=== PATIENT | female | born 1950 | race Caucasian/White ===

== ENCOUNTER 2022-06-18 11:02 | Emergency (ER) | payer MEDICARE, BC, SELFPAY ==
[2022-06-18 11:22] VITALS: BP 143/88; PULSE 81; RESP 16; TEMP 36.6; O2SAT 99; BMI 33.1
--- NOTE | 2022-06-18 11:50 | CRLHL7_ITS ---
For Patients: As a result of the Century Cures Act, medical imaging exams and procedure reports are released immediately into your electronic medical record. You may view this report before your referring provider. If you have questions, please contact your health care provider. indication: Pain, no fall Technique: Volumetric multidetector CT images of the lumbar spine were obtained without the administration of IV contrast. Comparison: None available. Findings: There is an evolving likely subacute to early chronic compression fracture of the superior L2 endplate with approximately 40 percent height loss. There is mild straightening of the normal lumbar lordosis with minimal anterolisthesis of L4 on L5. There is mild to moderate levocurvature of the AP alignment. There is mild to moderate multilevel degenerative disc disease with disc height loss and marginal osteophyte formation. There is moderate facet arthrosis. There is no displaced fracture or dislocation. The paraspinous soft tissues are grossly unremarkable. The visualized aorta is nonaneurysmal. Impression: Yxej-ag-[id number] degenerative changes of the lumbar spine with evolving likely late subacute to early chronic compression fracture of the superior L2 endplate with approximately 40 percent height loss. No other displaced injuries are appreciated. Consider follow-up with MRI for improved characterization of marrow edema changes. Please note that all CT scans at this facility use dose modulation, iterative reconstruction, and/or weight-based dosing when appropriate to reduce radiation dose to as low as reasonably achievable. Dictated by Dread Mcneill MD @ 06/18/2022 2:06:55 PM (Electronically Signed)
--- NOTE | 2022-06-18 11:53 | ED_ITS ---
HPI - General Adult General Chief complaint: Back Injury/Pain Stated complaint: Lower back pain Time Seen by Provider: 06/18/22 11:40 History of Present Illness HPI narrative: 72-year-old female coming in today complaining of 7 weeks of low back pain that has been progressively getting worse. She was recently started on Medrol Dosepak which has not done anything. She has also had chiropractor treatments which have not been helping. He states that the pain is located in the lower b ack right side slightly worse than the left. Pain does not radiate down her legs. She denies any weakness of the lower extremities. She denies any loss of bowel or bladder function. She denies fevers or chills. She denies other systemic symptoms such as nausea or vomiting. She denies any diarrhea or constipation or urinary symptoms such as frequency urgency or dysuria. She states that in the last couple of days she has had to use a walker because the pain is so intense that she can hardly walk. Patient has a history of hypertension, GERD. Denies ever having pain in her back like this before. Related Data Home Medications Medication Instructions Recorded Confirmed aspirin 81 mg tablet,delayed mg 06/18/22 release hydrochlorothiazide 25 mg tablet mg 06/18/22 lisinopril 5 mg tablet mg 06/18/22 omeprazole 40 mg capsule,delayed mg 06/18/22 release potassium chloride 10 mEq meq PO 06/18/22 tablet,extended release(part/cryst) (Klor-Con M) simvastatin 80 mg tablet mg 06/18/22 Previous Rx's Medication Instructions Recorded hydrocodone 5 mg-acetaminophen 325 1 tab PO Q6H PRN #10 tab 06/18/22 mg tablet Allergies Allergy/AdvReac Type Severity Reaction Status Date / Time Sulfa (Sulfonamide Allergy Unknown Verified 06/18/22 11:30 Antibiotics) Review of Systems Status of ROS: Reports: 10 or more systems reviewed and unremarkable except as noted in History and below PFSH PFSH Social History Smoking Status: Unknown if ever smoked How often do you have a drink containing alcohol: never AUDIT-C Alcohol total score: 0 Non-prescribed substance use: denies use Exam Narrative: Exam Narrative: Overweight, well-developed patient in no acute distress. Alert and oriented. Answers questions appropriately. Affect is slightly flat. Thoughts are goal oriented and rational. No tangential or magical thinking noted. Patient speaks in full sentences without needing to catch their breath. HEENT: Normocephalic atraumatic. Pupils are equally round reactive to light. Extraocular muscles are intact. Conjunctivae are moist without any icterus noted. Cardiovascular: Heart is regular rate and rhythm S1 and S2 are present with a 1/6 systolic murmur. Lungs: Clear to auscultation bilaterally no wheezes rhonchi or rales are appreciated. Patient takes deep breaths without any discomfort. Abdomen: Soft and nontender nondistended with normal bowel sounds. Extremities: Patient has a boot on the right lower extremity she is status post a foot surgery in December. The left lower extremity is without edema. Skin: Well perfused without any obvious rashes. Back: Normal appearance. She has no point tenderness over the thoracic or lumbar spine. She does have kyphosis. There are no skin changes. She has no tenderness in the buttocks region. Straight leg test is negative. Gait: Patient is able to stand up and walk with the assistance of a walker she leans heavily on the walker. She has a difficult time getting up or down on the bed but is able to do this unassisted. Const: Vital Signs, click to edit/add: Vital Signs - 24 hr 06/18/22 11:22 Temperature 97.8 F Pulse Rate [Pulse Oximeter] 81 Respiratory Rate 16 Blood Pressure [Ri ght Upper Arm] 143/88 H Pulse Oximetry 99 Course Course Hospital Course: Patient was given oral hydrocodone which took the edge off of her pain and she felt comfortable enough to proceed with a CT scan. CT scan does show an endplate compression fracture at L2. Given that the patient is not having any radicular symptoms we did not proceed with a follow-up MRI. Vital Signs Vital signs: Initial Vital Signs Temperature 97.8 F 06/18/22 11:22 Temperature Source Temporal Artery Scan 06/18/22 11:22 Pulse Rate 81 06/18/22 11:22 Pulse Rhythm 06/18/22 11:22 Respiratory Rate 16 06/18/22 11:22 Blood Pressure 143/88 H 06/18/22 11:22 Blood Pressure Mean 106 06/18/22 11:22 Blood Pressure Position Standing 06/18/22 11:22 Pulse Oximetry 99 06/18/22 11:22 Oxygen Delivery Method 06/18/22 11:22 Vital Signs Temperature 97.8 F 06/18/22 11:22 Pulse Rate 81 06/18/22 11:22 Respiratory Rate 16 06/18/22 11:22 Blood Pressure 143/88 H 06/18/22 11:22 Pulse Oximetry 99 06/18/22 11:22 Temperature 97.8 F 06/18/22 11:22 Pulse Rate 81 06/18/22 11:22 Respiratory Rate 16 06/18/22 11:22 Blood Pressure 143/88 H 06/18/22 11:22 Pulse Oximetry 99 06/18/22 11:22 Medical Decision Making MDM Narrative Medical decision making narrative: 72-year-old female with a compression fracture at L2. Patient tolerated hydrocodone without dizziness or lightheaded in the ED. Will send her home with a prescription for these. We did discuss constipation and the need for stool softener. I do want her to follow up with primary care physician so they can follow her progress. Patient was agreeable had no other questions. Imaging Data Lumbar spine CT: Attestation: I have reviewed the pertinent imaging results. Radiologist's impression: Findings: There is an evolving likely subacute to early chronic compression fracture of the superior L2 endplate with approximately 40 percent height loss. There is mild straightening of the normal lumbar lordosis with minimal anterolisthesis of L4 on L5. There is mild to moderate levocurvature of the AP alignment. There is mild to moderate multilevel degenerative disc disease with disc height loss and marginal osteophyte formation. There is moderate facet arthrosis. There is no displaced fracture or dislocation. The paraspinous soft tissues are grossly unremarkable. The visualized aorta is nonaneurysmal. Impression: Tplu-wh-[id number] degenerative changes of the lumbar spine with evolving likely late subacute to early chronic compression fracture of the superior L2 endplate with approximately 40 percent height loss. No other displaced injuries are appreciated. Consider follow-up with MRI for improved characterization of marrow edema changes. Discharge Plan Discharge Clinical Impression: Compression fracture of lumbar spine, non-traumatic Patient Disposition: Home, Self-Care Condition: Stable Additional Instructions: Recommend starting daily MiraLax or Colace to prevent constipation when taking hydrocodone for pain. This particular pain medication can cause constipation. Make an appointment to follow-up with your primary care provider this coming week so they can keep track of your progress. Return to the ER if you develop fever, vomiting, worsening pain or weakness of the lower extremities. Prescriptions: New hydrocodone-acetaminophen 5-325 mg tablet 1 tab PO Q6H PRN (Reason: pain) Qty: 10 0RF No Action simvastatin 80 mg tablet 0RF Label Comments: TAKE 1 TABLET BY MOUTH AT BEDTIME. omeprazole 40 mg capsule,delayed release(DR/EC) 0RF Label Comments: TAKE 1 CAPSULE (40 MG) BY MOUTH ONCE DAILY. TAKE 30-60 MINUTES BEFORE A MEAL/FOOD ONCE A DAY. aspirin 81 mg tablet,delayed release (DR/EC) 0RF Label Comments: TAKE 2 TABLETS BY MOUTH ONCE DAILY WITH A MEAL. lisinopril 5 mg tablet 0RF Label Comments: TAKE 2 TABLETS (10 MG) BY MOUTH ONCE DAILY. hydrochlorothiazide 25 mg tablet 0RF Label Comments: TAKE 1 TABLET BY MOUTH ONCE DAILY. potassium chloride [Klor-Con M10] 10 mEq tablet,ER particles/crystals PO 0RF Label Comments: TAKE 1 TABLET BY MOUTH 2 TIMES DAILY WITH MEALS. Follow Up/Referrals: Amy Iqbal MD [Primary Care Provider] - Stand Alone Forms: [employer] Info Instructions
[2022-06-18] MEDS: HYDROCODONE-ACETAMIN 5-325 MG 1 TAB PO (12:40)
[2022-06-18 14:30] VITALS: BP 137/90; PULSE 70; RESP 16; O2SAT 98
[2022-06-18 14:45] VITALS: RESP 16; TEMP 36.6
== END 2022-06-18 14:45 | disposition home or self-care (01) ==
PROVIDERS: Emergency Provider Family Medicine; PCP Family Medicine
DX: S22.080A Wedge compression fracture of T11-T12 vertebra, initial encounter for closed fracture (principal)
CPT/HCPCS: 72131; 99284; A9270

== ENCOUNTER 2023-01-18 13:00 | Outpatient (RCR) | payer MEDICARE, BC, SELFPAY ==
--- NOTE | 2022-10-15 15:33 | URNOTE ---
Received request for [facility] Vaccines. ([id number]). Pt has medicare and [place] supplement. Prior authorization is not required as services are based on medical necessity and follow medicare guidelines.
[2022-10-17 13:25] VITALS: BP 152/80; PULSE 71; RESP 16; TEMP 36.3; O2SAT 99
--- NOTE | 2022-10-17 15:15 | ONC.NURNOTE ---
kareem well. stayed 1/2 hr after . no reaction.
[2023-01-18 13:33] LABS: Calcium* 9.2 mg/dL (8.4-10.6); Est. Creatinine Clearance* 57.64; Estimated Glomerular Filt Rate 60 ml/min
== END 2023-04-15 23:59 | disposition home or self-care (01) ==
LOC: CCIC 13:00
PROVIDERS: PCP Family Medicine; Referring Provider Family Medicine; Visit Provider Clinical Nurse Specialist
DX: S22.080A Wedge compression fracture of T11-T12 vertebra, initial encounter for closed fracture (principal); M51.36 Other intervertebral disc degeneration, lumbar region
CPT/HCPCS: 36415; 82310; 82565; 96365; 96374; J1740

== ENCOUNTER 2023-04-10 06:04 | Day surgery (SDC) | payer MEDICARE, BC, SELFPAY ==
--- NOTE | 2023-04-10 06:17 | SUR.PREOP ---
The eye drops brought by the patient (Ketorolac and Prednisolone) are examined and I have determined they are labeled by the patient's pharmacy for this patient as prescribed by the surgeon. The bottles are intact, recently obtained and appear to be correct.
[2023-04-10] MEDS: TETRACAINE 0.5% OPHTH 1 DROP EYE-LEFT ×2 (06:20→06:30)
[2023-04-10 06:24] VITALS: BMI 36.1
[2023-04-10] MEDS: KETOROLAC OPHTH 0.5% 1 DROP EYE-LEFT ×2 (06:26→06:36)
[2023-04-10 06:29] VITALS: BP 170/78; PULSE 65; RESP 20; TEMP 36.2; O2SAT 98
[2023-04-10] MEDS: SODIUM CHLORIDE 0.9 % (FLUSH) 10 ML SYRINGE IVF (06:45)
[2023-04-10] MEDS: TETRACAINE 0.5% OPHTH 2 DROP EYE-LEFT (07:14)
[2023-04-10] MEDS: BALANCED SALT IRRIG SOLN 15 ML EYE-LEFT (07:19)
[2023-04-10 07:40] VITALS: BP 161/77; PULSE 64; RESP 20; TEMP 36.6; O2SAT 98
--- NOTE | 2023-04-10 07:44 | W.ANESCHARGE ---
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
--- NOTE | 2023-04-10 08:13 | W.ANESCHARGE ---
Anesthesia Charges Start Date/Time Anesthesia Start Date: 04/10/23 Anesthesia Start Time: 07:11 Stop Date/Time Anesthesia Stop Date: 04/10/23 Anesthesia Stop Time: 07:43 Summary Extremes of Age - Over 70 or under 1: MDA
--- NOTE | 2023-04-10 09:29 | W.PM.OPTPROC ---
Procedure Note Date of procedure: 04/10/23 Will [facility] bill your pro fee for this procedure?: Yes Procedure Description: SURGEON: Rach Ferrer MD PREOPERATIVE DIAGNOSIS: Nuclear sclerotic cataract, left eye. POSTOPERATIVE DIAGNOSIS: Nuclear sclerotic cataract, left eye. NAME OF OPERATION: Phacoemulsification of cataract with posterior chamber intraocular lens implantation in the left eye. ANESTHESIA: Topical. ESTIMATED BLOOD LOSS: Less than 2 cc. COMPLICATIONS: None. PATHOLOGY SPECIMEN: None. INDICATIONS: See consult note for details. The risks, benefits and alternatives of the procedure were explained to the patient, who elected to proceed and signed informed consent to do so. PROCEDURE: The patient was brought to the pre-holding area where the left eye was identified as the operative eye. I placed my initials above this eye. The patient received eye drops consisting of 0.5% tetracaine, 1% tropicamide, 10% phenylephrine, and 0.5% ketorolac. The patient was then brought to the operating room where the left eye was again identified as the operative eye. The eye was prepped with Betadine and draped in the usual sterile ophthalmic fashion. A #15 super-sharp blade was used to create a paracentesis site. 1% non-preserved intracameral lidocaine was injected into the anterior chamber. Endocoat was injected into the anterior chamber. A 2.4 mm keratome was used to create a three-plane self-sealing incision 1 mm anterior to the temporal limbus. A cystotome was used to create an anterior capsular leaflet. The Utrata forceps were used to extend this to form a continuous curvilinear capsulorrhexis. Hydrodissection was performed. The cataract was removed with phacoemulsification using the [id number] technique. The irrigation and aspiration tip was used to remove the remaining cortex. Healon was injected into the capsular bag. An HAILE ZCB00 intraocular lens of 23.0 diopters was injected into the capsular bag. The irrigation and aspiration tip was used to remove the remaining viscoelastic. Balanced salt solution on a cannula was used to hydrate the wound, and the wound was found to be watertight. The pupil was noted to be round. DISPOSITION: The patient was taken to the recovery room and discharged to home in stable condition. The patient was instructed to call me or go to the emergency department with any sudden change, including dramatic loss of vision, severe pain in the eye or eyebrow region, nausea, or vomiting. The patient will follow up in the clinic tomorrow morning.
== END 2023-04-10 08:10 | disposition home or self-care (01) ==
PROVIDERS: PCP Family Medicine; Visit Provider Ophthalmology
PROC: (CPT 66984; principal; 2023-04-10 06:15)
DX: H25.12 Age-related nuclear cataract, left eye (principal)
CPT/HCPCS: 66984; 00142; 99100; A9270; J2250; J3010; V2632

== ENCOUNTER 2023-07-26 09:00 | Outpatient (RCR) | payer MEDICARE, BC, SELFPAY ==
--- NOTE | 2023-04-19 14:11 | ONC.NURNOTE ---
lab work from [facility] ok for Meir to be given. kareem well.
--- NOTE | 2023-06-10 15:09 | ONC.NURNOTE ---
Dx: Compression Fracture (listed for prolia given back in April).
[2023-07-26 09:09] VITALS: BP 137/83; PULSE 68; RESP 18; TEMP 36.4; O2SAT 98
[2023-07-26 09:18] LABS: Calcium* 9.4 mg/dL (8.4-10.6); Creatinine* 0.8 mg/dL (0.5-1.5); Estimated Glomerular Filt Rate 78 ml/min
== END 2023-10-16 23:59 | disposition home or self-care (01) ==
LOC: CCIC 09:00
PROVIDERS: PCP Family Medicine; Referring Provider Family Medicine; Visit Provider Clinical Nurse Specialist
DX: S22.080A Wedge compression fracture of T11-T12 vertebra, initial encounter for closed fracture (principal)
CPT/HCPCS: 36415; 82310; 82565; 96372; 96374; J1740

== ENCOUNTER 2023-11-07 12:54 | Outpatient (RCR) | payer MEDICARE, BC, SELFPAY ==
--- NOTE | 2023-10-30 12:25 | URNOTE ---
Prior auth is not required for Bon[employer] ([id number]). Pt has medicare and [place]. Services are based on medical necessity and follow medicare guidelines.
[2023-11-07 14:03] LABS: Calcium* 9.2 mg/dL (8.4-10.6); Creatinine* 0.8 mg/dL (0.5-1.5); Estimated Glomerular Filt Rate 78 ml/min
[2023-11-07 14:42] VITALS: BP 139/81; PULSE 58; RESP 16; TEMP 36; O2SAT 98
== END 2024-05-05 23:59 | disposition home or self-care (01) ==
LOC: CCIC 12:54
PROVIDERS: PCP Family Medicine; Referring Provider Family Medicine; Visit Provider Clinical Nurse Specialist
DX: M85.80 Other specified disorders of bone density and structure, unspecified site (principal); N95.1 Menopausal and female climacteric states
CPT/HCPCS: 36415; 82310; 82565; 96374; J1740

== ENCOUNTER 2023-12-18 08:51 | Outpatient (CLI) | payer MEDICARE, BC, SELFPAY ==
--- OUTSIDE RECORDS SUMMARY | 2023-12-18 09:04 | XMS_ITS | Clinical Summary ---
Author Name Unknown Organization [facility] Address [place], [place] [address] Care Team Providers Care [employer] Administrator Name Role Phone Amy Iqbal MD Primary Care Prov ider Landen Johnson MD Unavailable Unavailabl e Nicola Fisher DPM Unavailable [phone] Allergies Active Allergy Reactions Criticality Noted Date Comments Valdecoxib 03/10/2007 eye irritation Kiwi Itching,*None-Radio logy Only 01/27/2013 Eyes and throat itching Nitrofurantoin Nausea Only,Headache Low 08/02/2015 Rofecoxib Throat Swelling/Closing High 03/10/2007 Other reaction(s): THROAT SWELLING Sulfa (Sulfonamide Antibiotics) Rash,*Unknown - Follow up needed 10/16/2007 Medications Medication Sig Dispensed Refills Start Date End Date Status medical supply, miscellaneous (GRADUATED COMPRESSION STOCKINGS)Indicatio ns:Venous (peripheral) insufficiency 20-30 mm/Hg calf high or thigh high compression stockings - Venous insufficiency 8 Packet 09/29/2020 Active acetaminophen (TYLENOL EXTRA STRGTH) 500 mg tablet Take 2 Tablets by mouth every 8 hours if needed for Pain. Max acetaminophen dose: 4000mg in 24 hrs. 0 12/12/2021 Active diphenhydrAMINE-kaila taminophen 25-500 mg (Tylenol PM Extra Strength) 25-500 mg tablet Take 1 Tablet by mouth at bedtime. Max acetaminophen dose: 4000mg in 24 hrs. 0 12/12/2021 Active calcium carbonate (CALTRATE) 600 mg calcium (1,500 mg) tablet Take 1 Tablet (600 mg) by mouth once daily with a meal. 180 Tablet 3 12/12/2021 Active cholecalciferol, Vitamin D3, (Vitamin D-3) 5,000 unit tab tablet Three times weekly 0 07/25/2022 A ctive vit C,G-Cd-htrtx-lutein -zeaxan (PreserVision AREDS-2) capsule Take 1 Capsule by mouth once daily. 0 01/31/2023 Active durable medical equipment (DME)Indications:Ac quired unequal limb length,Pes planus, unspecified laterality Custom foot orthotics. Limb length inequality with the left leg longer 1 Each 0 03/22/2023 Active ketorolac 0.5 % ophthalmic (ACULAR) solution 0 04/02/2023 Active omeprazole 20 mg tabletIndications:B arrett's esophagus without dysplasia Take 1 Tablet (20 mg) by mouth once daily. Take 30-60 minutes prior to evening meal. 90 Tablet 3 10/28/2023 Active simvastatin (ZOCOR) 80 mg tabletIndications:H ypercholesteremia Take 1 Tablet (80 mg) by mouth at bedtime. HOLD until patient calls 90 Tablet 3 10/28/2023 Active potassium chloride 10 mEq extended-release tablet (part/cryst)Indicat ions:Essential hypertension Take 1 Tablet (10 mEq) by mouth two times daily with meals. HOLD until patient calls 180 Tablet 3 10/28/2023 Active omeprazole (PRILOSEC) 40 mg Delayed-Release capsuleIndications: Gastroesophageal reflux disease, unspecified whether esophagitis present Take 1 Capsule (40 mg) by mouth once daily. Take 30-60 minutes before a meal/food once a day. 90 Capsule 3 10/28/2023 Active lisinopriL (PRINIVIL; ZESTRIL) 10 mg tabletIndications:H ypertension, unspecified type Take 1 Tablet (10 mg) by mouth once daily. HOLD until patient calls. Dose increaes as of 10/14/2021 90 Tablet 3 10/28/2023 Active hydroCHLOROthiazide (HCTZ) 25 mg tabletIndications:H ypertension, unspecified type Take 1 Tablet (25 mg) by mouth once daily. HOLD until patient calls 90 Tablet 3 10/28/2023 Active aspirin (ECOTRIN) 81 mg enteric coated tabletIndications:T hrombophlebitis of superficial veins of both lower extremities Take 1 Tablet (81 mg) by mouth once daily with a meal. HOLD until patient calls 90 Tablet 4 10/28/2023 Active ibandronate (BONIVA) 3 mg/3 mL injectionIndication s:Osteopenia, unspecified location Inject 3 mL (3 mg) intravenous every 3 months. 3 mL 3 10/29/2023 Active famotidine (PEPCID) 20 mg tabletIndications:B arrett's esophagus without dysplasia,Hiatal hernia,Gastroesopha geal reflux disease, unspecified whether esophagitis present Take 1 Tablet (20 mg) by mouth two times daily. 60 Tablet 11 11/01/2023 Active pantoprazole (PROTONIX) 40 mg delayed-release tabletIndications:H iatal hernia,Demarco's esophagus without dysplasia,Gastroeso phageal reflux disease, unspecified whether esophagitis present,Heartburn,A bdominal pain, epigastric Take 1 Tablet (40 mg) by mouth two times daily before meals. Take 30-60 minutes before a meal/food twice a day. 60 Tablet 11 11/14/2023 Active Hospital, Clinic, or Other Facility Administered Medication Ordered Dose Route Frequency Start Date End Date Status ibandronate 3 mg injection (BONIVA)Indications: Compression fracture of L2 vertebra with routine healing,Disorder of bone, unspecified 3 mg IV Q 3 MONTHS (12 WEEKS) 01/11/2023 03/05/2024 Active ibandronate 3 mg injection (BONIVA)Indications: Compression fracture of lumbar vertebra with routine healing, unspecified lumbar vertebral level, subsequent encounter 3 mg IV Q 3 MONTHS (12 WEEKS) 09/30/2022 11/24/2023 Ended Active Problems Problem Noted Date Diagnosed Date Compression fracture of L2 vertebra with routine healing 10/05/2022 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 Cee. Routine adult health maintenance 05/31/2015 Overview: Colonoscopy 05/2015 normal repeat in 10 years Vitamin D deficiency 12/16/2012 Osteopenia 11/21/2010 Overview: 2014 There was some decreased bone mass in her hip but her spine is stable. Repeat in 3-5 years Left BB Block 12/28/2009 Chest pain, unspecified 12/28/2009 Overview: - Adenosine Myoview 09/27/04: No evidence of Adenosine induced ischemia. Fixed area of diminished activity present at the mid and apical anteroseptal wall, felt to represent breast attenuation artifact. Normal EF. - Coronary Angio 10/22/09: Normal coronaries. EF 70% Obesity, unspecified 12/28/2009 Overview: Lost 60 lbs as of 10/09/2010 Signed electronically by Elly Iqbal MD ......... 11:40 AM 10/09/2010 Demarco's esophagus 10/16/2007 Overview: EGD 04/2009 Demarco's, repeat EGD in 3 years EGD 01/2013 Demarco's, repeat EGD in 3 years EGD 10/2015 Demarco's , repeat EGD in 3 years EGD 08/2020 Demarco's, fundic gland polyps, repeat EGD in 3 years EGD 08/2023 Demarco's, repeat EGD in 3 years Unspecified essential hypertension 10/16/2007 Pure hypercholesterolemia 10/16/2007 Unspecified venous (peripheral) insufficiency Osteoarthrosis, unspecified whether generalized or localized, unspecified site 10/16/2007 Resolved Problems Problem Noted Date Diagnosed Date Resolved Date Posterior tibial tendon dysfunction 12/06/2021 04/03/2023 Inflammatory spondylopathy of lumbar region 08/10/2019 10/05/2021 Anticoagulation monitoring, special range 04/19/2016 05/30/2016 Thrombophlebitis of superfic ial veins of both lower extremities 07/21/2015 04/03/2023 Overview: July 2015: see ultrasound, bilateral greater Saph Veins, extensive on left. Venous aneurysm 11/22/2011 04/03/2023 Dizziness and giddiness 12/28/2009 05/0 01/2023 Recurrent Chest Pain 12/28/2009 023 Overview: - Adenosine Myoview Stress 12/21/08: No change in baseline LBBB pattern during adenosine protocol Resting HR 66, BP 152/92. Maximum HR 118 beats/min. No clear ECG evidence of inducible ischemia Morbid obesity 12/28/2009 12/28/2009 Hiatal hernia 04/12/2009 04/03/2023 Congenital hiatus hernia 10/16/200701/2023 SINUSITIS, ACUTE MAXILLARY 04/04/2001 0 04/03/2023 PAIN, ABDOMINAL, RIGHT UPPER QUADRANT 08/26/2000 04/03/2023 PAIN IN JOINT, UNSPECIFIED SITE 08/26/2000 04/03/2023 Encounters Date Type Department Care Team Description 11/29/2023 Medical Mess[address] [address] Stan Hastings MD stomach & heartburn 11/27/2023 1:00 PM COMMUNICATIONS LEAD Ancillary Procedure [address] [address] 11/27/2023 Travel 11/01/2023 2:00 PM COMMUNICATIONS LEAD Office Visit [address] [address] Stan Hastings MD Consult (Sensation in esophagus from throat and all the way down, stomach aches) 11/01/2023 Travel 10/30/[address] [address] Taryn Abreu, DO Questions (Orders) 10/29/2023 1:40 PM COMMUNICATIONS LEAD Ancillary Procedure [address] [address] 10/29/[address] [address] Tootie Zuniga MD Refill Request 10/28/2023 10:25 AM COMMUNICATIONS LEAD Office Visit [facility] [address] [place] [address] Taryn Abreu, Medicare ANNUAL (subsequent) Visit 10/28/2023 Travel 10/28/2023 Refill [facility] [address] [facility] [place] [address] Amy Iqbal MD Refill Request (Omeprazole) 10/16/2023 Nurse Triage [facility] [address] [place] [address] Amy Iqbal MD Questions (Request For Call Back/) 10/02/2023 1:20 PM CDT Office Visit [facility] [address] [place] [address] Jackie Alvarez, MAXIMO Urinary Problem 10/02/2023 Travel from Last 3 Months Immunizations Name Administration Dates Next Due AMB INFLUENZA IIV3 (AGE 65+ YRS) PF (Flu Clinic Only) 09/26/2017 COVID-19 vaccine (One-Song-Bio NTech 30mcg/0.3mL) 12YO+ BIVALENT PF, MDV 09/21/2022 COVID-19 vaccine (One-Song-Bio NTech 30mcg/0.3mL) PF, MDV 09/25/2021,02/24/2021,02/24/2021,2020 Influenza, High-dose Inactivated 08/10/2018,12/0 04/2016,09/21/2015 Influenza, High-dose Quadriv alent Inactivated 10/11/2023,09/13/2021,09/29/2020 Influenza, IIV3 (Age >=3 years) 09/01/2011 Influenza, IIV4 09/06/2019 Influenza, Inactivated AIIV4 (Age 65+ Years) Preserv Free 09/12/2022 Pneumococcal Poly,23-Valent (Pneumovax) 11/05/2016 Pneumococcal conj 13-Valent (Prevnar 13) 09/21/2015 Td (Age >=7 Years) 04/10/2004 Td, Preservative Free (age > = 7 Years) 04/10/2004 Tdap 04/03/2016 Zoster (Shingrix-RZV, recombinant) 07/08/2023, Zoster (Zostavax-ZVL, live) 11/22/2011 Family History Medical History Relation Name Comments Good Health Brother 1 Good Health Brother 2 Good Health Brother 3 Good Health Daughter 1 Good Health Daughter 2 Good Health Daughter 3 Heart Disease Father [place] age 48 Cancer Mother ovarian Genetic Other noncontributory Brain cancer Paternal Grandmother Good Health Sister Cancer-breast No Family History Relation Name Status Comments Brother 1 Brother 2 Brother 3 Daughter 1 Daughter 2 Daughter 3 Father (Age 48) [place] Maternal Grandfather Maternal Grandmother Mother (Age 70) ovarian Other Paternal Grandfather Paternal Grandmother Sister Social History Tobacco Use Types Packs/Day Years Used Date Smoking Tobacco: Never Smokeless Tobacco: Never Tobacco Cessation:Counseling Given: Yes Alcohol Use Standard Drinks/Week Comments No 0 (1 standard drink = 0.6 oz pur e alcohol) Alcoholic Drinks/day: 0 PHQ-2 Answer Date Recorded PHQ-2 TOTAL SCORE 0 10/28/2023 Social Connections Answer Date Recorded Frequency of Communication with Friends and Fami ly 0 10/02/2023 Financial Resource Strain Answer Date R ecorded Difficulty of Paying Living Expenses 3 10/02/2023 Difficulty of Paying Living Expenses Not on file 10/02/2023 Food Insecurity Answer Date Recorded Worried About Running Out of Food in the Last Ye ar 1 10/02/2023 Transportation Needs Answer Date Record ed Lack of Transportation (Medical) 1 10/02/2023 Housing Stability Answer Date Recorded Unable to Pay for Housing in the Last Year 1 10/02/2023 Sex and Gender Information Value Date Recorded Sex Assigned at Not on file Gender Identity Not on file Sexual Orientation Not on file Obstetrics History Para Term AB IAB SAB Ectopic Multiple Livin g Live Births 3 3 0 3 3 Date Outcome GA Total Labor Labor/2nd/3rd Weight Sex Delivery Anes PTL Bhavani A1 A5 Name Cl in Para F Vag Guillermina ng Para F Vag Guillermina ng Para F Guillermina ng Last Filed Vital Signs Vital Sign Reading Time Taken Comments Blood Pressure 131/63 11/01/2023 1:56 PM COMMUNICATIONS LEAD Pulse 83 11/01/2023 1:56 PM COMMUNICATIONS LEAD Temperature 36.9 ??C (98.4 ??F) 10/02/2023 2:24 PM CD T Respiratory Rate 14 10/02/2023 2:24 PM CDT Oxygen Saturation 99% 11/01/2023 1:56 PM COMMUNICATIONS LEAD Inhaled Oxygen Concentration - - Weight 77.8 kg (171 lb 9.6 oz) 10/28/2023 10:34 AM COMMUNICATIONS LEAD Height 144.4 cm (4' 8.85) 10/28/2023 10:[address] Body Mass Index 37.33 10/28/2023 10:34 AM COMMUNICATIONS LEAD Plan of Treatment Upcoming Encounters Date Type Department Care Team (Late st Contact Info) Description 01/07/2024 11:10 AM COMMUNICATIONS LEAD Office Visit [facility] [address] [place] [address] Amy Iqbal MD [address] [place] [address] Health Maintenance Due Date Last Done Comments COVID-19 vaccine series (2022- season) 2023 09/21/2022, 09/25/2021, 02/24/2021, Additional history exists Medicare Wellness for age 65+ 10/27/2024, 10/09/2022, 10/05/2021, Additional history exists BMI (ht and wt on same day) for age 18+ 10/28/2024 10/28/2023, 04/03/2023, 10/09/2022, Additional history exists Mammogram for age 45-75 10/29/2024 10/29/20 23, 10/09/2022, 10/05/2021, Additional history exists Depression screening for age 12+ 10/30/2024 10/30/2023, 10/29/2023, 10/28/2023, Additional history exists Colonoscopy through age 75 05/31/202505/31, [facility]09[facility] Tetanus booster 04/03/2026 04/03/2016, 04/01, 04/10/2004 Lipids for age 45-75 10/28/2028 10/28/2023, 10/09/2022, 10/05/2021, Additional history exists Tdap Completed 04/03/2016 Hepatitis C screening for ag e 18-79 Completed 05/29/2016 Pneumococcal series for age 65+ Completed 6, 09/21/2015 Zoster (shingles) series for age 50+ Completed 07/08/2023, 05/08/2023, 11/22/2011 Influenza for age 65+ Completed 10/11/2023 , 09/12/2022, 09/13/2021, Additional history exists DEXA/DXA scan for age 65+ Completed 2022, 09/29/2020, 05/24/2015, Additional history exists Medical Devices Implanted Type Area Chief Information Security Officer Device Identifier Shelf Expiration Date Model / Serial / Lot Bone Matrix 5.0cc Allosync Pure - [id number] Implanted:Qty: 1 on 12/06/2021 by Nicola Fisher DPM at [facility] Right: Foot [employer] 03/09/2026 ABS-2010-04 / / [id number] Screw Foot 3x16mm Arthrex Low Profile Ricco - [id number] Implanted:Qty: 1 on 12/06/2021 by Nicola Fisher DPM at [facility] Right: Foot [employer] AR-8933-16 / / NA Screw Foot 7x70mm Xlg Compression Ft - [id number] Implanted:Qty: 2 on 12/06/2021 by Nicola Fisher DPM at [facility] Right: Foot [employer] AR-8770-70H / / NA Screw Foot 7x40mm Xlg Compression Ft - [id number] Implanted:Qty: 1 on 12/06/2021 by Nicola Fisher DPM at [facility] Right: Foot [employer] AR-8770-40H / / NA Dynanite Super Mx Staple With Instrumentation, 15w X 15l- [id number] Implanted:Qty: 1 on 12/06/2021 by Nicola Fisher DPM at [facility] Right: Foot [employer] 10/01/2026 AR-8719MXDS -1515 / / [id number] Description:With Implant on Delivery Device, Drill Guide, Drill Bit, Two Alignment Pins and Tamp Kreulock Compression Screw System; Compression Screws, Estela, Ti, 3.0mm - [id number] Implanted:Qty: 2 on 12/06/2021 by Nicola Fisher DPM at [facility] Right: Foot [employer] AR-8933VCL- 12 / / NA Kreulock Compression Screw System; Compression Screws, Estela, Ti, 3.0mm - [id number] Implanted:Qty: 1 on 12/06/2021 by Nicola Fisher DPM at [facility] Right: Foot [employer] AR-8933VCL- 14 / / NA Kreulock Compression Screw System; Compression Screws, Estela, Ti, 3.0mm - [id number] Implanted:Qty: 1 on 12/06/2021 by Nicola Fisher DPM at [facility] Right: Foot [employer] AR-8933VCL- 16 / / NA Plate Low Profile Mtp Contoured Sht Rt Titnm - [id number] Implanted:Qty: 1 on 12/06/2021 by Nicola Fisher DPM at [facility] Right: Foot [employer] AR-8944CR-S / / NA Screw Ricco Low Profile 3.0x14mm Titnm - [id number] Implanted:Qty: 1 on 12/06/2021 by Nicola Fisher DPM at [facility] Right: Foot [employer] AR-8933-14 / / NA Procedures Procedure Name Priority Date/Time Associated Diagnosis Comments XR DXA BONE DENSITY 2 SITES AXIAL Routine 11/27/2023 1:29 PM COMMUNICATIONS LEAD Osteopenia, unspecified location Postmenopausal XR MAMMO BILAT SCREENING Routine 10/29/2023 1:57 PM COMMUNICATIONS LEAD Visit for screening mammogram PHOSPHORUS Routine 10/28/2023 11:49 AM COMMUNICATIONS LEAD Osteopenia, unspecified location MAGNESIUM Routine 10/28/2023 11:49 AM COMMUNICATIONS LEAD Osteopenia, unspecified location BASIC METABOLIC PANEL Routine 10/28/2023 11:49 AM COMMUNICATIONS LEAD Unspecified essential hypertension LIPID PANEL W REFLEX MEASURED LDL Routine 10/28/2023 11:49 AM COMMUNICATIONS LEAD Pure hypercholesterolemia URINALYSIS MICROSCOPIC STAT 10/02/2023 2:15 PM CDT Urinary tract infection symptoms URINE CULTURE STAT 10/02/2023 2:15 PM CDT Urinary tract infection symptoms UA W/ SEDIMENT EXAM REFLEXED PER CRITERIA STAT 10/02/2023 2:15 PM CDT Urinary tract infection symptoms from Last 3 Months Results * (ABNORMAL) XR DXA BONE DENSITY 2 SITES AXIAL (11/27/2023 1:29 PM COMMUNICATIONS LEAD) Anatomical Region Laterality Modality Spine, HIPS, HIPL, HIPR Other Impressions 11/27/2023 4:39 PM COMMUNICATIONS LEAD Osteoporosis. Consider a drug holiday from bisphosphonates if indicated. Spine and right femur both with decline despite boniva. ??Consider alternative therapy. RECOMMENDATIONS: The National Osteoporosis Foundation recommends pharmacologic treatment for patients with T-scores of -2.5 or less, patients with prior history of fragility fractures, or patients with 10-year probability of greater than 3% at hips or greater than 20% of suffering major osteoporotic fractures. Recommend continued optimization of calcium and vitamin D intake through dietary means and/or supplementation and regular exercise. Consider pharmacologic therapy for osteoporosis. Follow-up bone density reading in 2 years if therapy initiated to assess therapeutic efficacy. Donna Deras PA-C [facility] 11/27/2023 ?? Narrative 11/27/2023 4:39 PM COMMUNICATIONS LEAD For Patients: Results are automatically released to your [facility] account once available, in compliance with federal regulations. This means that you may see your results before your provider has had a chance to review them. Please allow 2-3 business days for your provider to comment on the results. XR DXA Bone Mineral Density (BMD) EXAM LOCATION: [address] [address] PATIENT NAME: Whitney Portillo DATE OF : 1950 EXAM DATE: 11/27/2023 REQUESTING PROVIDER: Taryn Abreu, GENDER AT : female HEIGHT: 4' 8.85 (10/28/2023) WEIGHT: ??171 lb 9.6 oz (10/28/2023) MENOPAUSAL STATUS: Postmenopausal RACE/ETHNICITY: White RISK FACTORS: Height Loss (2 inches or more) and White Race CURRENT MEDICATION FOR BONE LOSS: Ibandronate (Boniva) INDICATION: Follow-up of existing osteopenia COMPARISON DATE(S): 2019 DXA scans are compared to prior studies for a patient only when the two (or more) studies were performed on the same scanner. It is not possible to compare data generated on one scanner to data from another because there are not standards in DXA equipment. This applies even if the two scanners are made by the same supervisor special education. PROCEDURE: Dual-energy x-ray absorptiometry performed with routine technique. Reporting is completed in the form of a T-score. The T-score represents the standard deviation from peak bone mass based on young healthy adult. A Z-score is used for diagnosis in premenopausal women, and for men under the age of 50. FINDINGS: RESULT LUMBAR SPINE L1 - L4 BMD: 0.876 g/cm2 T-Score: - 2.5 Z-Score: - 1.3 Change from prior in 2009: ??Decrease 7.5%. RESULTS FEMUR Right femoral neck BMD: 0.665 g/cm2 T-Score: - 2.7 Z-Score: - 1.1 Change from prior in 2019: ??Decrease 18.4%. Right hip BMD: 0.644 g/cm2 T-Score: - 2.9 Z-Score: - 1.6 Change from prior in 2019: ??Decrease 22.8%. WHO criteria: Normal: T-score at or above -1 SD Osteopenia: T-score between -1.1 and -2.4 SD Osteoporosis: T-score at or below -2.5 SD Taryn Abreu DO DEXA * XR MAMMO BILAT SCREENING (10/29/2023 1:57 PM COMMUNICATIONS LEAD) Anatomical Region Laterality Modality BREASTS, Breast Left, Breast Right Bilateral Mammography Impressions 10/31/2023 9:04 AM COMMUNICATIONS LEAD ??There is no radiographic evidence for malignancy. ??Recommend annual mammograms. MAMMOGRAM ASSESSMENT: ??ACR 1 Negative PATIENTS: You will also receive a letter with your examination results in an easy to read format. ??If you have questions about your results, please contact your referring provider. Narrative 10/31/2023 9:04 AM COMMUNICATIONS LEAD For Patients: As a result of the Cures Act, medical imaging exams and procedure reports are released immediately into your electronic medical record. You may view this report before your referring provider. If you have questions, please contact your health care provider. XR MAMMO BILAT SCREENING [[id number]] CLINICAL HISTORY: ??This is an asymptomatic 73 y.o. patient. INDICATION FOR EXAM: Mammogram Screening. TECHNIQUE: CC & MLO views were obtained. ??This study was evaluated with the assistance of Computer-Aided Detection. COMPARISON FILM: Yes 10/09/22 [facility] 10/05/21 [facility] FINDINGS: ??The breasts have scattered areas of fibroglandular density. There are no dominant masses, suspicious micro calcifications or areas of architectural distortion. Amy Iqbal MD MAMMO * (ABNORMAL) LIPID PANEL W REFLEX MEASURED LDL (10/28/2023 11:49 AM COMMUNICATIONS LEAD) CHOLESTEROL,TOTAL 200(H) 100 - 199 mg/dL 10/28/2023 9:27 PM [facility] Comment: Cholesterol, Total Reference Ranges Desirable <200 mg/dL Borderline 200-239 mg/dL High >=240 mg/dL TRIGLYCERIDES 110 <150 mg/dL 10/28/2023 9:27 PM [facility] HDL CHOLESTEROL 64 >40 mg/dL 9:27 PM [facility] NON-HDL CHOLESTEROL 136 <145 mg/dl 10/28/2023 9:27 PM [facility] CHOL/HDL RATIO 3.13 <4.50 10/28/2023 9:27 PM [facility] LDL CHOLESTEROL 114 <=130 mg/dL 10/28/2023 9:27 PM [facility] VLDL CHOLESTEROL 22 <=30 mg/dL 10/28/2023 9:27 PM COMMUNICATIONS LEAD [facility] PROVIDER ORDERED STATUS RANDOM 10/28/2023 9:27 PM COMMUNICATIONS LEAD [facility] Blood BLOOD SPECIMEN / Unknown Venipuncture / Unknown 10/28/2023 11:49 AM COMMUNICATIONS LEAD 10/28/2023 11:49 AM COMMUNICATIONS LEAD Taryn Abreu DO CHEMISTRY Performing Organization Address City/[facility]/ZIP Co de Phone Number [facility] [address] [place] [address], * PHOSPHORUS (10/28/2023 11:49 AM COMMUNICATIONS LEAD) PHOSPHORUS 3.3 2.5 - 4.5 mg/dL 10/28/2023 9:27 PM COMMUNICATIONS LEAD [facility] Blood BLOOD SPECIMEN / Unknown Venipuncture / Unknown 10/28/2023 11:49 AM COMMUNICATIONS LEAD 10/28/2023 11:49 AM COMMUNICATIONS LEAD Taryn Abreu DO CHEMISTRY Performing Organization Address [facility] Co de Phone Number [facility] Business [facility] [address] [place] [address], * MAGNESIUM (10/28/2023 11:49 AM COMMUNICATIONS LEAD) MAGNESIUM 1.7 1.6 - 2.4 mg/dL 10/28/2023 9:27 PM COMMUNICATIONS LEAD [facility] Blood BLOOD SPECIMEN / Unknown Venipuncture / Unknown 10/28/2023 11:49 AM COMMUNICATIONS LEAD 10/28/2023 11:49 AM COMMUNICATIONS LEAD Taryn Abreu DO CHEMISTRY Performing Organization Address City/[facility] Co de Phone Number [facility] Brand [employer] [address] [place] [address], * (ABNORMAL) BASIC METABOLIC PANEL (10/28/2023 11:49 AM COMMUNICATIONS LEAD) SODIUM 134(L) 136 - 145 mmol/L 10/28/2023 9:27 PM [facility] POTASSIUM 4.5 3.5 - 5.1 mmol/L 10/28/2023 9:27 PM [facility] LABORATORY CHLORIDE 96(L) 98 - 107 mmol/L 10/28/2023 9:27 PM [facility] CO2,TOTAL 27 22 - 29 mmol/L 10/28/2023 9:27 PM [facility] ANION GAP 11 5 - 18 10/28/2023 9:27 PM [facility] GLUCOSE 101(H) 70 - 99 mg/dL 10/28/2023 9:27 PM [facility] CALCIUM 10.4(H) 8.8 - 10.2 mg/dL 10/28/2023 9:27 PM [facility] BUN 11 8 - 23 mg/dL 10/28/2023 9:27 PM [facility] CREATININE 0.83 0.50 - 0.90 mg/dL 10/28/2023 9:27 PM [facility] BUN/CREAT RATIO 13 10 - 20 9:27 PM [facility] eGFR 75(L) >90 mL/min/1.7 3m2 10/28/2023 9:27 PM [facility] Comment:As of 2022, eG FR is calculated by the CKD-EPI creatinine equation without race adjustment. ??eGFR can be influenced by muscle mass, exercise, and diet. ??The reported eGFR is an estimation only and is only applicable if the renal function is stable. Blood BLOOD SPECIMEN / Unknown Venipuncture / Unknown 10/28/2023 11:49 AM COMMUNICATIONS LEAD 10/28/2023 11:49 AM [facility] Taryn Abreu DO CHEMISTRY [facility] [address] [place] [address], [place] * (ABNORMAL) URINALYSIS MICROSCOPIC (10/02/2023 2:15 PM CDT) RBC 6-10(A) 0-2, None Seen /HPF 10/02/2023 2:55 PM CDT [facility] WBC 11-25(A) 0-2, 3-5, None Seen /HPF 10/02/2023 2:55 PM CDT [facility] BACTERIA Few None Seen, Rare, Few Bacteria/H PF 10/02/2023 2:55 PM CDT [facility] EPITHELIAL CELLS Few None Seen, Few Epi/HPF 10/02/2023 2:55 PM CDT [facility] Urine URINE SPECIMEN / Unknown Non-Blood / Unknown 10/02/2023 2:15 PM CDT 10/02/2023 2:26 PM CDT Gisele E Furlong MANAGER CLUB URINE [facility] [address] [place] [address] * URINE CULTURE [99365.2] (10/02/2023 2:15 PM CDT) CULTURE <10,000 CFU/mL multiple organisms 10/04/2023 1:20 PM CDT [facility] Urine URINE SPECIMEN / Unknown Non-Blood / Unknown 10/02/2023 2:15 PM CDT 10/02/2023 2:26 PM CDT Gisele E Furlong MANAGER CLUB MICROBIOLOGY [facility] [address] [place] [address], [place] * (ABNORMAL) UA W/ SEDIMENT EXAM REFLEXED PER CRITERIA (UA w/ reflex micro if positive) [36413.2] (10/02/2023 2:15 PM CDT) COLOR Yellow Yellow Color 10/02/2023 2:53 PM CDT [facility] CLARITY Clear Clear Clarity 10/02[facility]23 2:[facility] SPECIFIC GRAVITY,URINE <=1.005(A) 1.010, 1.015, 1.020, 1.025 10/02/2023 2:53 PM T [facility] PH,URINE 5.5 6.0, 7.0, 8.0, 5.5, 6.5, 7.5, 8.5 10/02/2023 2:53 PM T [facility] UROBILINOGEN, QUALITATIVE Normal Normal EU/dl 10/02/2023 2:53 PM T [facility] PROTEIN, URINE Negative Negative mg/dL 10/02/2023 2:53 PM [facility] GLUCOSE, URINE Negative Negative mg/dL 10/02/2023 2:53 PM T [facility] KETONES,URINE Negative Negative mg/dL 10/02/2023 2:53 PM T [facility] BILIRUBIN,URI NE Negative Negative 10/02/2023 2:53 PM [facility] OCCULT BLOOD,URINE Large(A) Negative 10/02/2023 2:53 PM [facility] NITRITE Negative Negative 10/02/2023 2:53 PM [facility] LEUKOCYTE ESTERASE Moderate(A) Negative 10/02/2023 2:53 PM [facility] Urine URINE SPECIMEN / Unknown Non-Blood / Unknown 10/02/2023 2:15 PM CDT 10/02/2023 2:26 PM CDT Gisele E Furlong MANAGER CLUB URINE [facility] [address] [place] [address] from Last 3 Months Additional Health Concerns Infection Onset Date Last Indicated MDRO Clearance Comment:Infection Control Note: 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 Do not delete or resolve the infection flag. 12/07/2021 12/07/2021 Advance Directives Documents on File Type Date Recorded Patient Field Nurse Case Manager Expl anation Healthcare Directive 10/15/2019 10:28 AM 10/06/19 Latest Code Status on File Code Status Date Activated Date Inactivated Comments Full Code 12/06/2021 11:12 AM 12/07/2021 2:45 PM Question Answer Comments Code Status Discussion: Reviewed Preferences Code Status History Code Status Date Activated Date Inactivated Comments Full Code 12/28/2009 8:32 AM 12/28/2009 11:39 PM Care Teams [employer] Administrator Relationship Specialty Start Date End Date Amy Iqbal MD [address] [place] [address] PCP - General 09/13/06 Landen Johnson MD [address] [place] [address] [address] Surgery - General 11/20/11 Nicola Fisher DPM [address] [place] [address] [address] Surgery - Podiatric 12/07/21
--- OUTSIDE RECORDS SUMMARY | 2023-12-18 09:04 | XMS_ITS | Referral Summary ---
Author Name Unknown Organization [facility] Address [address] [place] [address] Care Team Providers Care Business Transformation Manager Name Role Phone Unavailable Primary Care Provider Unavailabl e Allergies Active Allergy Reactions Criticality Noted Date Comments Sulfa Antibiotics Unknown 06/20/2022 Medications Medication Sig Dispensed Refills Start Date End Date Status lisinopril (ZESTRIL) 5 MG tablet Take by mouth daily 0 Active potassium chloride ER (K-TAB) 20 MEQ CR tablet Take 20 mEq by mouth 0 Active hydrochlorothiazide (HYDRODIURIL) 25 MG tablet Take 25 mg by mouth daily 0 Active omeprazole (PRILOSEC) [address] capsule Take 20 mg by mouth daily 0 Active simvastatin (ZOCOR) 80 MG tablet Take by mouth At Bedtime 0 Active Vitamin D3 (CHOLECALCIFEROL) 25 mcg (1000 units) tablet Take by mouth daily 0 Active acetaminophen (TYLENOL) 500 MG tablet Take 500-1,000 mg by mouth every 6 hours as needed for mild pain 0 Active Social History Tobacco Use Types Packs/Day Years Used Date Smoking Tobacco: Never Assessed Adolescent Education Answer Date Record ed Getting School Help Needed Not on file 09/08 Sex and Gender Information Value Date Recorded Sex Assigned at Not on file Gender Identity Not on file Sexual Orientation Not on file Last Filed Vital Signs Vital Sign Reading Time Taken Comments Blood Pressure 133/74 06/20/2022 1:11 PM CDT Pulse 87 06/20/2022 1:11 PM CDT Temperature - - Respiratory Rate 16 06/20/2022 1:11 PM CDT Oxygen Saturation 97% 06/20/2022 1:11 PM CDT Inhaled Oxygen Concentration - - Weight - - Height - - Body Mass Index - - Plan of Treatment Not on file
--- OUTSIDE RECORDS SUMMARY | 2023-12-18 09:04 | XMS_ITS | Clinical Summary ---
Author Name Unknown Organization [facility] Address [address] [place] [address] Care Team Providers Care Cold Press Loader Name Role Phone Unavailable Primary Care Provider [...] Mass Index - - Plan of Treatment Health Maintenance Due Date Last Done Comments ADVANCE CARE PLANNING 1950 ANNUAL REVIEW OF HM ORDERS 1950 CT COLONOGRAPHY 1950 DEXA 1950 FIT 1950 FLEX SIG 1950 MAMMO SCREENING 1950 sDNA (Cologuard) 1950 COLONOSCOPY 1960 COLORECTAL CANCER SCREENING 1960 HEPATITIS C SCREENING 1968 LIPID 1995 RSV VACCINE ( & 60+) (1 - 1-dose 60+ series) 2010 ZOSTER IMMUNIZATION (2 of 3) 01/17/2012 11/22/2011 FALL RISK ASSESSMENT 2015 MEDICARE ANNUAL WELLNESS VISIT 10/05/2022 10/05/2021, 09/29/2020 COVID-19 Vaccine ( season) 2023 09/25/2021, 02/24/2021, 02/03/2021 INFLUENZA VACCINE (#1) 2023 , 09/29/2020, 09/06/2019, Additional history exists PHQ-2 (once per calendar year) 2023 DTAP/TDAP/TD IMMUNIZATION (2 - Td or Tdap) 04/03/2026 04/03/2016, 04/10/2004 Pneumococcal Vaccine: 65+ Years Completed 11/05/2016, 09/21/2015 HPV IMMUNIZATION Aged Out No longer e ligible based on patient's age to complete this topic IPV IMMUNIZATION Aged Out No longer e ligible based on patient's age to complete this topic MENINGITIS IMMUNIZATION Aged Out No l onger eligible based on patient's age to complete this topic RSV MONOCLONAL ANTIBODY Aged Out No l onger eligible based on patient's age to complete this topic
--- NOTE | 2023-12-18 09:15 | CRLHL7_ITS ---
For Patients: As a result of the Century Cures Act, medical imaging exams and procedure reports are released immediately into your electronic medical record. You may view this report before your referring provider. If you have questions, please contact your health care provider. Technique: Double-contrast esophagram performed after the uneventful administration of effervescent crystals and thick barium followed by thin barium. Fluoroscopy time 73 seconds. Indication: Dysphagia Comparison: None. Findings: No obstruction to the flow of barium. Esophageal dysmotility noted with delayed clearance of contrast from the esophagus. Spontaneous reflux noted to the proximal esophagus. No mucosal irregularity. No stricture. The distal esophagus is patulous. No achalasia. No sliding hernia. 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 No mucosal irregularity. Dictated by Can Dukes MD @ 12/18/2023 1:23:39 PM (Electronically Signed)
--- NOTE | 2024-01-29 15:20 | ONC.NURNOTE ---
Whitney called to cancel her Boniva injection on 02/06/24, she stated that her Doctor has discontinued these injections.
== END 2023-12-18 08:52 | disposition home or self-care (01) ==
LOC: RAD 08:53
PROVIDERS: PCP Family Medicine; Visit Provider Internal Medicine Gastroenterology
DX: R13.10 Dysphagia, unspecified (principal); K21.9 Gastro-esophageal reflux disease without esophagitis
CPT/HCPCS: 74221

== ENCOUNTER 2024-05-19 10:08 | Outpatient (CLI) | payer MEDICARE, BC, SELFPAY ==
--- OUTSIDE RECORDS SUMMARY | 2024-05-19 10:11 | XMS_ITS | Referral Summary ---
Author Organization [facility] Address [address] [place] [address] Care Team Providers Care Physician Primary Care Sports Medicine Name Role Phone Unavailable Primary Care Provider Unavailabl e Allergies Active Allergy Reactions Criticality Noted Date Comments Sulfa Antibiotics Unknown 06/20/2022 Medications Medication Sig Dispensed Refills Start Date End Date Status lisinopril (ZESTRIL) 5 MG tablet Take by mouth daily Active potassium chloride ER (K-TAB) 20 MEQ CR tablet Take 20 mEq by mouth Active hydrochlorothiazide (HYDRODIURIL) 25 MG tablet Take 25 mg by mouth daily Active omeprazole (PRILOSEC) [address] capsule Take 20 mg by mouth daily Active simvastatin (ZOCOR) 80 MG tablet Take by mouth At Bedtime Active Vitamin D3 (CHOLECALCIFEROL) 25 mcg (1000 units) tablet Take by mouth daily Active acetaminophen (TYLENOL) 500 MG tablet Take 500-1,000 mg by mouth every 6 hours as needed for mild pain Active Social History Tobacco Use Types Packs/Day [...]
--- OUTSIDE RECORDS SUMMARY | 2024-05-19 10:11 | XMS_ITS | Clinical Summary ---
Author Organization [facility] Address [address] [place] [id number] Care Team Providers Care Storm Sash Maker Name Role Phone Unavailable Primary Care Provider [...] DEXA 1950 FIT 1950 FLEX SIG 1950 GLUCOSE 1950 LIPID 1950 MAMMO SCREENING 1950 sDNA (Cologuard) 1950 COLONOSCOPY 1960 COLORECTAL CANCER SCREENING 1960 HEPATITIS C SCREENING 1968 RSV VACCINE ( & 60+) (1 - 1-dose 60+ series) 2010 ZOSTER IMMUNIZATION (2 of 3) 01/17/2012 11/22/2011 FALL RISK ASSESSMENT 2015 MEDICARE ANNUAL WELLNESS VISIT 10/05/2022 10/05/2021, 09/29/2020 COVID-19 Vaccine ( - season) 2023 09/25/2021, 02/24/2021, 02/03/2021 PHQ-2 (once per calendar year) 2023 INFLUENZA VACCINE (Season Ended) 2024 09/13/2021, 09/29/2020, 09/06/2019, Additional history exists DTAP/TDAP/TD IMMUNIZATION (2 - Td or Tdap) [...]
--- OUTSIDE RECORDS SUMMARY | 2024-05-19 10:11 | XMS_ITS | Clinical Summary ---
Author Organization [employer] [facility] Address [place], [place] [address] Care Team Providers Care Order Administrator Name Role Phone Amy Iqbal MD Primary Care Prov ider Landen Johnson MD Unavailable Unavailabl e Nicola Fisher DPM Unavailable Allergies Active Allergy Reactions Criticality Noted Date [...] Three times weekly 0 07/25/2022 A ctive durable medical equipment (DME)Indications:Ac quired unequal limb length,Pes planus, unspecified laterality Custom foot orthotics. 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 HOLD until patient calls 90 Tablet 3 10/28/2023 Active potassium chloride 10 mEq extended-release tablet (part/cryst)Indicat ions:Essential hypertension Take 1 Tablet (10 mEq) by mouth two times daily with meals. HOLD until patient calls 180 Tablet 3 10/28/2023 Active lisinopriL (PRINIVIL; ZESTRIL) 10 [...] times daily. 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 15 g 1 01/29/2024 Active Active Problems Problem Noted Date Diagnosed Date [...] Encounters Date Type Department Care Team Description 05/01/2024 Telephone [facility] [address] [facility] [address] Nicola Cee MD Results 04/30/2024 11:45 AM CDT Ancillary Procedure [facility] [address] [place] [address] 04/30/2024 Travel 04/10/2024 10:45 AM CDT Ancillary Procedure [facility] [address] [place] [address] [address] 04/10/2024 10:30 AM CDT Ancillary Procedure [facility] [address] [facility] [place] [address] 04/10/2024 9:40 AM CDT Office Visit [facility] [address] [facility] [place] [address] Nicola Cee MD Musculoskeletal Problem (Follow up right knee pain) 04/10/2024 Travel 02/18/2024 10:00 AM CDT Nurse/Clinic Staff Only [facility] [address] [place] [address] [address] Infusion Therapy (Reclast) 02/18/2024 Travel from Last 3 Months Immunizations Name Administration Dates Next Due AMB INFLUENZA IIV3 (AGE 65+ YRS) PF (Flu Clinic Only) 09/26/2017 COVID-19 vaccine (Purplu-Bio NTech 30mcg/0.3mL) 12YO+ BIVALENT PF, MDV 09/21/2022 COVID-19 vaccine (Purplu-Bio NTech 30mcg/0.3mL) PF, MDV 09/25/2021,02/24/2021,02/24/2021,2020 Influenza, High-dose [...] Good Health Daughter 3 Heart Disease Father RI age 48 Cancer Mother ovarian Genetic Other noncontributory Brain cancer Paternal Grandmother Good Health Sister Cancer-breast No Family History Relation Name Status Comments Brother 1 Brother 2 Brother 3 Daughter 1 Daughter 2 Daughter 3 Father (Age 48) Massive [place] Maternal Grandfather Maternal Grandmother Mother (Age 70) [...] Outcome GA Total Labor Labor/2nd/3rd Weight Sex Type Anes PTL Bhavani A1 A5 Name Clin Para F Vag Living Para F Vag Living Para F C-Sec tion Living Last Filed Vital Signs Vital Sign Reading Time Taken Comments Blood Pressure 137/84 04/10/2024 9:41 AM CDT Pulse 61 04/10/2024 9:41 AM CDT Temperature 36.4 ??C (97.5 ??F) 04/10/2024 9:41 AM CD T Respiratory Rate 14 10/02/2023 2:24 PM CDT Oxygen Saturation 100% 04/10/2024 9:41 AM CDT Inhaled Oxygen Concentration - - Weight 79.1 kg (174 lb 6.4 oz) 01/29/2024 10:47 AM IT QUALITY ANALYST Height 144.4 cm (4' 8.85) 10/28/2023 10:[address] Body Mass Index 37.94 10/28/2023 10:34 AM IT QUALITY ANALYST Plan of Treatment Upcoming Encounters Date Type Department Care Team (Late st Contact Info) Description 05/19/2024 10:40 AM CDT Office Visit [facility] at [facility] [address] [place] [address] Nicola Cee MD [address] [place] [address] Arrived 05/22/2024 11:30 AM CDT Appointment [address] [address] Rdaha Galvez, PT [address] [place] [address] 06/02/2024 11:30 AM CDT Appointment [address] [address] Radha Galvez, PT [address] [place] [address] 06/09/2024 11:00 AM CDT Appointment [address] [address] Deanna Alberts V, [facility] [address] [place] [address] 06/10/2024 1:00 PM CDT Office Visit [facility] [address] [place] [address] Nicola Cee MD [address] [place] [address] 06/16/2024 11:30 AM CDT Appointment [facility] [address] [place] [address] Radha Galvez, PT [address] [place] [address] Health Maintenance Due Date Last Done Comments COVID-19 vaccine series ( season) 2024 11/01/2023, 09/21/2022, 09/25/2021, Additional history exists Influenza for age 65+ 08/02/2024 10/11/2023 , 09/12/2022, 09/13/2021, Additional history exists BMI (ht and wt on same day) for age 18+ 10/28/2024 10/28/2023, 04/03/2023, 10/09/2022, Additional history exists Medicare Wellness for age 65+ 10/28/2024, 10/09/2022, 10/05/2021, Additional history exists Mammogram for age 45-75 10/29/2024 10/29/20 23, 10/09/2022, 10/05/2021, Additional history exists Depression screening for age 12+ 10/30/2024 10/30/2023, 10/29/2023, 10/28/2023, Additional history exists Colonoscopy through age 75 05/31/202505/31, 01/09/2006 [facility] Tetanus booster 04/03/2026 04/03/2016, 04/01, 04/10/2004 Lipids for age 45-75 10/28/2028 10/28/2023, 10/09/2022, 10/05/2021, Additional history exists Tdap Completed 04/03/2016 Hepatitis C screening for ag e 18-79 Completed 05/29/2016 Pneumococcal series for age 65+ Completed 6, 09/21/2015 Zoster (shingles) series for age 50+ Completed 07/08/2023, 05/08/2023, 11/22/2011 DEXA/DXA scan for age 65+ Completed 2022, 09/29/2020, 05/24/2015, Additional history exists Medical Devices Implanted Type Area Environmental Field Professional Device Identifier Shelf Expiration Date Model / Serial / Lot Bone Matrix 5.0cc All[employer]ync Pure - [id number] Implanted:Qty: 1 on 12/06/2021 by Nicola Fisher DPM at [employer] Right: Foot [employer] 03/09/2026 ABS-2010-04 / / [id number] Screw Foot 3x16mm [employer] Low Profile Ricco - [id number] Implanted:Qty: 1 on 12/06/2021 by Nicola Fisher DPM at [employer] Right: Foot [employer] AR-8933-16 / / NA Screw Foot 7x70mm Xlg Compression Ft - [id number] Implanted:Qty: 2 on 12/06/2021 by Nicola Fisher DPM at [employer] Right: Foot [employer] AR-8770-70H / / NA Screw Foot 7x40mm Xlg Compression Ft - [id number] Implanted:Qty: 1 on 12/06/2021 by Nicola Fisher DPM at [employer] Right: Foot [employer] AR-8770-40H / / NA Dynanite Super Mx Staple With Instrumentation, 15w X 15l- [id number] Implanted:Qty: 1 on 12/06/2021 by Nicola Fisher DPM at [employer] Right: Foot [employer] 10/01/2026 AR-8719MXDS -1515 / / [id number] Description:With Implant on Delivery Device, Drill Guide, Drill Bit, Two Alignment Pins and Tamp Kreulock Compression Screw System; Compression Screws, Estela, Ti, 3.0mm - [id number] Implanted:Qty: 2 on 12/06/2021 by Nicola Fisher DPM at [employer] Right: Foot [employer] AR-8933VCL- 12 / / NA Kreulock Compression Screw System; Compression Screws, Estela, Ti, 3.0mm - [id number] Implanted:Qty: 1 on 12/06/2021 by Nicola Fisher DPM at [employer] Right: Foot [employer] AR-8933VCL- 14 / / NA Kreulock Compression Screw System; Compression Screws, Estela, Ti, 3.0mm - [id number] Implanted:Qty: 1 on 12/06/2021 by Nicola Fisher DPM at [employer] Right: Foot [employer] AR-8933VCL- 16 / / NA Plate Low Profile Mtp Contoured Sht Rt Titnm - [id number] Implanted:Qty: 1 on 12/06/2021 by Nicola Fisher DPM at [employer] Right: Foot [employer] AR-8944CR-S / / NA Screw Ricco Low Profile 3.0x14mm Titnm - [id number] Implanted:Qty: 1 on 12/06/2021 by Nicola Fisher DPM at [employer] Right: Foot [employer] AR-8933-14 / / NA Procedures Procedure Name Priority Date/Time Associated Diagnosis Comments AMB EPIDURAL STEROID INJECTION Routine 05/19/2024 8:02 AM CDT DDD (degenerative disc disease), lumbar Lumbar radiculopathy MR SPINE LUMBAR WO Routine 04/30/2024 12:06 PM CDT DDD (degenerative disc disease), lumbar Lumbar radiculopathy Spinal stenosis of lumbar region with neurogenic claudication XR KNEE WB 2 VIEWS BILATERAL AND 1 VIEW RIGHT Routine 04/10/2024 10:33 AM CDT Primary osteoarthritis of right knee XR SPINE LUMBAR 2 VIEWS Routine 04/10/2024 10:32 AM CDT DDD (degenerative disc disease), lumbar Lumbar radiculopathy XR DXA BONE DENSITY 2 SITES AXIAL Routine 11/27/2023 1:29 PM IT QUALITY ANALYST Osteopenia, unspecified location Postmenopausal XR MAMMO BILAT SCREENING Routine 10/29/2023 1:57 PM IT QUALITY ANALYST Visit for screening mammogram LIPID PANEL W REFLEX MEASURED LDL Routine 10/28/2023 11:49 AM IT QUALITY ANALYST Pure hypercholesterolemia ANTI HCV Routine 05/29/2016 12:17 PM CDT Need for hepatitis C screening test from Last 3 Months or Most Recently Relevant to Health Maintenance Results * MR SPINE LUMBAR WO (04/30/2024 12:06 PM CDT) Anatomical Region Laterality Modality Spine, LUMBAR SPINE Magnetic Res onance 05/01/2024 9:40 AM CDT Impressions 05/01/2024 9:40 AM CDT 1. Stable trace degenerative grade 1 anterolisthesis of L4 on L5. 2. Otherwise normal alignment. 3. Multiple chronic compression fractures of T12, L2, L3 and L4. These are unchanged from the recent radiographs but new from the previous CT. 4. No acute fractures. 5. Lumbar spondylosis. 6. At L2-3, mild narrowing of the spinal canal and left neural foramen. 7. At L3-4, mild narrowing of the spinal canal and bilateral neural foramina. Dictated by Richar Funk MD @ 05/01/2024 9:40:53 AM (Electronically Signed) Narrative 05/01/2024 9:40 AM CDT For Patients: ??As a result of the Century Cures Act, medical imaging exams and procedure reports are released immediately into your electronic medical record. ??You may view this report before your referring provider. ??If you have questions, please contact your health care provider. INDICATION: Lumbar radiculopathy. Low back pain. COMPARISON: 04/10/2024. CT 12/01/2021. Technique Sagittal T1, T2, and STIR sequences. Axial T1 and T2 weighted sequences. FINDINGS: Stable trace degenerative grade 1 anterolisthesis of L4 on L5 measures approximately 4 mm. Otherwise, normal alignment. There are multiple chronic compression fractures of the T12, L2, L3, and L4 vertebral bodies which are unchanged from the previous radiograph of 04/10/2024 but new from the previous CT of 2020. No retropulsion of fracture fragments. No acute fractures. No ligamentous injury. No suspicious osseous lesions. Normal conus terminates at L1. [id number]: No spinal canal or neural foraminal narrowing. L1-2: Annular bulge. No narrowing of spinal canal. No neural foraminal narrowing. L2-3: Mild disc degeneration. Diffuse disc bulge eccentric to the left. Mild narrowing of spinal canal. Mild narrowing of the left neural foramen. No narrowing of the right neural foramen. Mild facet arthropathy. L3-4: Disc degeneration. Diffuse disc bulge. Mild narrowing of the spinal canal. Mild narrowing of bilateral foramina. Mild facet arthropathy. L4-5: Grade 1 anterolisthesis. Unroofed posterior disc bulge. No narrowing of spinal canal. No neural foraminal narrowing. Mild facet arthropathy. L5-S1: Disc degeneration. No narrowing of spinal canal. No impingement of the traversing S1 nerve roots. No neural foraminal narrowing. Mild facet arthropathy. Degenerative changes of the SI joints. Partially visualized left PABLO. Procedure Note Richar Funk MD, PhD - 05/01/2024 For Patients: As a result of the Cures Act, medical imagingexams and procedure reports are released immediately into your electronicmedical record. You may view this report before your referring provider.If you have questions, please contact your health care provider. INDICATION: Lumbar radiculopathy. Low back pain. COMPARISON: 04/10/2024. CT 12/01/2021. Technique Sagittal T1, T2, and STIR sequences. Axial T1 and T2 weightedsequences. FINDINGS: Stable trace degenerative grade 1 anterolisthesis of L4 on L5 measuresapproximately 4 mm. Otherwise, normal alignment. There are multiple chronic compression fractures of the T12, L2, L3, andL4 vertebral bodies which are unchanged from the previous radiograph of04/10/2024 but new from the previous CT of 2020. No retropulsion of fracture fragments. No acute fractures. No ligamentous injury. No suspicious osseous lesions. Normal conus terminates at L1. [id number]: No spinal canal or neural foraminal narrowing. L1-2: Annular bulge. No narrowing of spinal canal. No neural foraminalnarrowing. L2-3: Mild disc degeneration. Diffuse disc bulge eccentric to the left.Mild narrowing of spinal canal. Mild narrowing of the left neural foramen.No narrowing of the right neural foramen. Mild facet arthropathy. L3-4: Disc degeneration. Diffuse disc bulge. Mild narrowing of the spinalcanal. Mild narrowing of bilateral foramina. Mild facet arthropathy. L4-5: Grade 1 anterolisthesis. Unroofed posterior disc bulge. No narrowingof spinal canal. No neural foraminal narrowing. Mild facet arthropathy. L5-S1: Disc degeneration. No narrowing of spinal canal. No impingement ofthe traversing S1 nerve roots. No neural foraminal narrowing. Mild facetarthropathy. Degenerative changes of the SI joints. Partially visualized left PABLO. IMPRESSION: 1. Stable trace degenerative grade 1 anterolisthesis of L4 on L5. 2. Otherwise normal alignment. 3. Multiple chronic compression fractures of T12, L2, L3 and L4. These areunchanged from the recent radiographs but new from the previous CT. 4. No acute fractures. 5. Lumbar spondylosis. 6. At L2-3, mild narrowing of the spinal canal and left neural foramen. 7. At L3-4, mild narrowing of the spinal canal and bilateral neuralforamina. Dictated by Richar Funk MD @ 05/01/2024 9:40:53 AM (Electronically Signed) Nicola Cee MD MR * XR KNEE WB 2 VIEWS BILATERAL AND 1 VIEW RIGHT (04/10/2024 10:33 AM CDT) Anatomical Region Laterality Modality KNEES, KNEE R Computed Radiogr aphy 04/12/2024 1:30 PM CDT Narrative 04/12/2024 1:30 PM CDT For Patients: ??As a result of the Century Cures Act, medical imaging exams and procedure reports are released immediately into your electronic medical record. ??You may view this report before your referring provider. ??If you have questions, please contact your health care provider. Indication: Pain. Primary osteoarthritis of right knee Technique: Two views both knees. One view left knee Comparison: None. Findings/impression: Right knee: Mild narrowing of the medial tibiofemoral compartment joint space. Moderate/severe narrowing of the lateral tibiofemoral compartment joint space. Slight subchondral lucency over the central aspect of the medial condyle which may reflect a small osteochondral lesion. Mild/moderate patellofemoral narrowing. Left knee: Moderate narrowing of the medial tibiofemoral compartment joint space. Lateral tibiofemoral compartment joint space preserved. Mild patellofemoral narrowing. Small joint effusion. Dictated by Adrian Bradford MD @ 04/12/2024 1:30:09 PM (Electronically Signed) Procedure Note Adrian Bradford MD - 04/12/2024 For Patients: As a result of the Cures Act, medical imagingexams and procedure reports are released immediately into your electronicmedical record. You may view this report before your referring provider.If you have questions, please contact your health care provider. Indication: Pain. Primary osteoarthritis of right knee Technique: Two views both knees. One view left knee Comparison: None. Findings/impression: Right knee: Mild narrowing of the medial tibiofemoral compartment jointspace. Moderate/severe narrowing of the lateral tibiofemoral compartmentjoint space. Slight subchondral lucency over the central aspect of themedial condyle which may reflect a small osteochondral lesion.Mild/moderate patellofemoral narrowing. Left knee: Moderate narrowing of the medial tibiofemoral compartment jointspace. Lateral tibiofemoral compartment joint space preserved. Mildpatellofemoral narrowing. Small joint effusion. Dictated by Adrian Bradford MD @ 04/12/2024 1:30:09 PM (Electronically Signed) Nicola Cee MD GENERAL IMAGING * XR SPINE LUMBAR 2 VIEWS (04/10/2024 10:32 AM CDT) Anatomical Region Laterality Modality LUMBAR SPINE Computed Radiogr aphy 04/11/2024 2:50 PM CDT Impressions 04/11/2024 2:50 PM CDT 1. Stable chronic compression deformities of T12, L2, L3, L4. 2. Stable degenerative change at L4-5. Dictated by Ruslan Carlos MD @ 04/11/2024 2:50:08 PM (Electronically Signed) Narrative 04/11/2024 2:50 PM CDT For Patients: ??As a result of the s Act, medical imaging exams and procedure reports are released immediately into your electronic medical record. ??You may view this report before your referring provider. ??If you have questions, please contact your health care provider. INDICATION: Low back pain. History of compression fractures FINDINGS: Two views of the lumbar spine are submitted. Compared to prior study from January 03, 2023 Stable minimal degenerative anterolisthesis of L4 on 5. Stable chronic compression deformities T12, L2, L3, L4. The overall stature and alignment within the remainder of the lumbar spine is within normal limits. ?? Intervertebral disc space height appears within normal limits. Nonspecific bowel gas pattern. Stable calcified uterine fibroid. Surgical clips in the right upper quadrant of the abdomen likely due to prior cholecystectomy. Procedure Note Herberth Carlos, - 04/11/2024 For Patients: As a result of the Cures Act, medical imagingexams and procedure reports are released immediately into your electronicmedical record. You may view this report before your referring provider.If you have questions, please contact your health care provider. INDICATION: Low back pain. History of compression fractures FINDINGS: Two views of the lumbar spine are submitted. Compared to prior study fromJanuary 03, 2023 Stable minimal degenerative anterolisthesis of L4 on 5. Stable chroniccompression deformities T12, L2, L3, L4. The overall stature and alignmentwithin the remainder of the lumbar spine is within normal limits.Intervertebral disc space height appears within normal limits. Nonspecificbowel gas pattern. Stable calcified uterine fibroid. Surgical clips in theright upper quadrant of the abdomen likely due to prior cholecystectomy. IMPRESSION: 1. Stable chronic compression deformities of T12, L2, L3, L4. 2. Stable degenerative change at L4-5. Dictated by Ruslan Carlos MD @ 04/11/2024 2:50:08 PM (Electronically Signed) Nicola Cee MD GENERAL IMAGING * (ABNORMAL) XR DXA BONE DENSITY 2 SITES AXIAL (11/27/2023 1:29 PM IT QUALITY ANALYST) Anatomical Region Laterality Modality Spine, HIPS, HIPL, HIPR Other Impressions 11/27/2023 4:39 PM IT QUALITY ANALYST Osteoporosis. Consider a drug holiday from bisphosphonates [...] to assess therapeutic efficacy. Donna Deras PA-C [facility] 11/27/2023 ?? Narrative 11/27/2023 4:39 PM IT QUALITY ANALYST For Patients: Results are automatically released to your [facility] account once available, in compliance with federal regulations. This means that you may see your results before your provider has had a chance to review them. Please allow 2-3 business days for your provider to comment on the results. XR DXA Bone Mineral Density (BMD) EXAM LOCATION: [address] [address] PATIENT NAME: Whitney Portillo DATE OF : 1950 EXAM DATE: 11/27/2023 REQUESTING PROVIDER: Taryn Abreu, DO GENDER AT : female HEIGHT: 4' 8.85 [...] two scanners are made by the same still operator helper. PROCEDURE: Dual-energy x-ray absorptiometry performed with routine [...] XR MAMMO BILAT SCREENING (10/29/2023 1:57 PM IT QUALITY ANALYST) Anatomical Region Laterality Modality BREASTS, Breast Left, Breast Right Bilateral Mammography Impressions 10/31/2023 9:04 AM IT QUALITY ANALYST ??There is no radiographic evidence for malignancy. ??Recommend annual mammograms. MAMMOGRAM ASSESSMENT: ??ACR 1 Negative PATIENTS: You will also receive a letter with your examination results in an easy to read format. ??If you have questions about your results, please contact your referring provider. Narrative 10/31/2023 9:04 AM IT QUALITY ANALYST For Patients: As a result of the Century Cures Act, medical imaging exams and procedure reports are released immediately into your electronic medical record. You may view this report before your referring provider. If you have questions, please contact your health care provider. XR MAMMO BILAT SCREENING [[id number]] CLINICAL HISTORY: ??This is an asymptomatic 73 y.o. patient. INDICATION FOR EXAM: Mammogram Screening. TECHNIQUE: CC & MLO views were obtained. ??This study was evaluated with the assistance of Computer-Aided Detection. COMPARISON FILM: Yes 10/09/22 [employer] 10/05/21 [employer] FINDINGS: ??The breasts have scattered areas of fibroglandular density. There are no dominant masses, suspicious micro calcifications or areas of architectural distortion. Amy Iqbal MD MAMMO * (ABNORMAL) LIPID PANEL W REFLEX MEASURED LDL (10/28/2023 11:49 AM IT QUALITY ANALYST) CHOLESTEROL,TOTAL 200(H) 100 - 199 mg/dL 10/28/2023 9:27 PM IT QUALITY ANALYST [facility] Comment: Cholesterol, Total Reference Ranges Desirable <200 mg/dL Borderline 200-239 mg/dL High >=240 mg/dL TRIGLYCERIDES 110 <150 mg/dL 10/28/2023 9:27 PM IT QUALITY ANALYST [facility] HDL CHOLESTEROL 64 >40 mg/dL 9:27 PM IT QUALITY ANALYST [facility] NON-HDL CHOLESTEROL 136 <145 mg/dl 10/28/2023 9:27 PM IT QUALITY ANALYST [facility] CHOL/HDL RATIO 3.13 <4.50 10/28/2023 9:27 PM IT QUALITY ANALYST [facility] LDL CHOLESTEROL 114 <=130 mg/dL 10/28/2023 9:27 PM IT QUALITY ANALYST [facility] VLDL CHOLESTEROL 22 <=30 mg/dL 10/28/2023 9:27 PM IT QUALITY ANALYST [facility] PROVIDER ORDERED STATUS RANDOM 10/28/2023 9:27 PM IT QUALITY ANALYST [facility] Blood BLOOD SPECIMEN / Unknown Venipuncture / Unknown 10/28/2023 11:49 AM IT QUALITY ANALYST 10/28/2023 11:49 AM IT QUALITY ANALYST Taryn Abreu DO CHEMISTRY [facility] [address] [place] [address], * ANTI HCV (05/29/2016 12:17 PM CDT) HEPATITIS C ANTIBODY Non-Reacti ve Non-Reacti ve 05/29/2016 8:56 PM CDT [facility] Blood BLOOD SPECIMEN / Unknown Venipuncture / Unknown 05/29/2016 12:17 PM CDT 05/29/2016 3:54 PM CDT Narrative [facility] - 05/29/2016 8:56 PM CDT Antibodies to HCV not detected; does not exclude the possibility of exposure to HCV. Amy Iqbal MD SEND OUTS [facility] 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 Do not delete or resolve the infection flag. 12/07/2021 12/07/2021 Advance Directives Documents on File Type Date Recorded Patient Collision Worker Expl anation Healthcare Directive 10/15/2019 10:28 AM 10/06/19 * Full Code (Latest Code Status on File) Date Activated Date Inactivated Comments 12/06/2021 11:12 AM 12/07/2021 2:45 PM Question Answer Comments Code Status Discussion: Reviewed Preferences * Full Code Date Activated Date Inactivated Comments 12/28/2009 8:32 AM 12/28/2009 11:39 PM Care Teams Order Administrator Relationship Specialty Start Date End Date Amy Iqbal MD [address] [place] [address] PCP - General 09/13/06 Landen Johnson MD [address] [place] [address] Surgery - General 11/20/11 Nicola Fisher DPM [address] [place] [address] Surgery - Podiatric 12/07/21
== END 2024-05-19 10:09 | disposition home or self-care (01) ==
LOC: INJ CL 10:09
PROVIDERS: PCP Family Medicine; Visit Provider Family Medicine
DX: M54.16 Radiculopathy, lumbar region (principal); M51.36 Other intervertebral disc degeneration, lumbar region
CPT/HCPCS: 62323; J0702; Q9966

== ENCOUNTER 2024-06-07 14:50 | Outpatient (CLI) | payer MEDICARE, BC, SELFPAY ==
--- OUTSIDE RECORDS SUMMARY | 2024-06-08 03:59 | XMS_ITS | Clinical Summary ---
Author Organization [facility] Address [place], [place] [address] Care Team Providers Care Test Kitchen Home Economist Name Role Phone Amy Iqbal MD Primary Care Prov ider Landen Johnson MD Unavailable Unavailabl e Nicola Fisher DPM Unavailable [phone] Allergies Active Allergy Reactions Criticality Noted Date [...] repeat EGD in 3 years EGD 01/2013 Demacro's, repeat EGD in 3 years EGD 10/2015 [...] Encounters Date Type Department Care Team Description 06/02/2024 11:23 AM CDT - 06/02/2024 11:59 PM CDT Hospital Encounter [facility] [address] [address] Nicola Cee MD Nightingale, Alexandra, PT 06/02/2024 Travel 05/22/2024 11:05 AM CDT - 05/22/2024 11:59 PM CDT Hospital Encounter [address] [place] [address] Nicola Cee MD Nightingale, Alexandra, PT DDD (degenerative disc disease), lumbar; Primary osteoarthritis of right knee; Lumbar radiculopathy; Spinal stenosis of lumbar region with neurogenic claudication; Acquired genu valgum of right knee 05/22/2024 Travel 05/19/2024 10:40 AM CDT Office Visit [facility] [address] [place] [address] Nicola Cee MD Procedure (L3-4 ilesi) 05/01/2024 Telephone [facility] [address] [place] [address] Nicola Cee MD Results 04/30/2024 11:45 AM CDT Ancillary Procedure [facility] [address] [place] [address] 04/30/2024 Travel 04/10/2024 10:45 AM CDT Ancillary Procedure [facility] [address] [place] [address] 04/10/2024 10:30 AM CDT Ancillary Procedure [facility] [address] [place] [address] 04/10/2024 9:40 AM CDT Office Visit [facility] [address] [place] [address] Nicola eCe MD Musculoskeletal Problem (Follow up right knee pain) 04/10/2024 Travel from Last 3 Months Immunizations Name Administration Dates Next Due AMB INFLUENZA IIV3 (AGE 65+ YRS) PF (Flu Clinic Only) 09/26/2017 COVID-19 vaccine (Pfizer-Bio NTech 30mcg/0.3mL) 12YO+ BIVALENT PF, MDV 09/21/2022 COVID-19 vaccine (Pfizer-Bio NTech 30mcg/0.3mL) PF, MDV 09/25/2021,02/24/2021,02/24/2021,2020 Influenza, High-dose Inactivated 08/10/2018,1204/2016,09/21/2015 Influenza, High-dose Quadriv alent Inactivated 10/11/2023,09/13/2021,09/29/2020 Influenza, [...] Good Health Daughter 3 Heart Disease Father MD age 48 Cancer Mother ovarian Genetic Other noncontributory Brain cancer Paternal Grandmother Good Health Sister Cancer-breast No Family History Relation Name Status Comments Brother 1 Brother 2 Brother 3 Daughter 1 Daughter 2 Daughter 3 Father (Age 48) Massive MD Maternal Grandfather Maternal Grandmother Mother (Age 70) [...] (174 lb 6.4 oz) 01/29/2024 10:47 AM PATIENT ACCESS REPRESENTATIVE Height 144.4 cm (4' 8.85) 10/28/2023 10:[address] Body Mass Index 37.94 10/28/2023 10:34 AM PATIENT ACCESS REPRESENTATIVE Plan of Treatment Upcoming Encounters Date Type Department Care Team (Late st Contact Info) Description 06/09/2024 11:00 AM CDT Appointment [facility] [address] [place] [address] Deanna Alberts V, BUSINESS TECHNOLOGY TEACHER [address] [place] [address] 06/10/2024 1:00 PM CDT Office Visit [facility] [address] [place] [address] Nicola Cee MD [address] [place] [address] 06/16/2024 11:30 AM CDT Appointment [address] [address] Radha Galvez, PT [address] [place] [address] 06/23/2024 11:00 AM CDT Appointment [address] [address] Deanna Alberts V, BUSINESS TECHNOLOGY TEACHER [address] [place] [address] 06/30/2024 11:30 AM CDT Appointment [address] [address] Radha Galvez, PT [address] [place] [address] Health Maintenance Due Date Last Done Comments [...] age 75 05/31/202505/31, 01/09/2006 (Completed outside of [facility] [address]) Tetanus booster 04/03/2026 04/03/2016, 04/01, 04/10/2004 Lipids [...] history exists Medical Devices Implanted Type Area Longwall Headgate Operator Device Identifier Shelf Expiration Date Model / Serial / Lot Bone Matrix 5.0cc Allosync Pure - [id number] Implanted:Qty: 1 on 12/06/2021 by Nicola Fisher DPM at [facility] Right: Foot [employer] 03/09/2026 ABS-2010-04 / / [id number] Screw Foot 3x16mm Arthrex Low Profile Ricco - [id number] Implanted:Qty: 1 on 12/06/2021 by Nicola Fisher DPM at [facility] Right: Foot [employer] AR-8933-16 / / NA Screw Foot 7x70mm Xlg Compression Ft - [id number] Implanted:Qty: 2 on 12/06/2021 by Nicola Fisher DPM at [facility] Right: Foot [employer] AR-8770-70H / / NA Screw Foot 7x40mm Xlg Compression Ft - [id number] Implanted:Qty: 1 on 12/06/2021 by Nicola Fisher DPM at [facility] Right: Foot [employer] AR-8770-40H / / NA Dynanite Super Mx Staple With Instrumentation, 15w X 15l- [id number] Implanted:Qty: 1 on 12/06/2021 by Nicola Fisher DPM at [facility] Right: Foot [employer] 10/01/2026 AR-8719MXDS -1515 / / [id number] Description:With Implant on Delivery Device, Drill Guide, Drill Bit, Two Alignment Pins and Tamp Kreulock Compression Screw System; Compression Screws, Estela, Ti, 3.0mm - [id number] Implanted:Qty: 2 on 12/06/2021 by Nicola Fisher DPM at [facility] Right: Foot [employer] AR-8933VCL- 12 / / NA Kreulock Compression Screw System; Compression Screws, Estela, Ti, 3.0mm - [id number] Implanted:Qty: 1 on 12/06/2021 by Nicola Fisher DPM at [facility] Right: Foot [employer] AR-8933VCL- 14 / / NA Kreulock Compression Screw System; Compression Screws, Estela, Ti, 3.0mm - [id number] Implanted:Qty: 1 on 12/06/2021 by Nicola Fisher DPM at [facility] Right: Foot [employer] AR-8933VCL- 16 / / NA Plate Low Profile Mtp Contoured Sht Rt Titnm - [id number] Implanted:Qty: 1 on 12/06/2021 by Nicola Fisher DPM at [facility] Right: Foot [employer] AR-8944CR-S / / NA Screw Ricco Low Profile 3.0x14mm Titnm - [id number] Implanted:Qty: 1 on 12/06/2021 by Nicola Fisher DPM at [facility] Right: Foot [employer] AR-8933-14 / / NA Procedures Procedure Name Priority Date/Time Associated Diagnosis Comments SCAN CORRESP-IMAGING 06/02/2024 8:58 AM CDT AMB EPIDURAL STEROID INJECTION Routine 05/19/2024 8:02 AM CDT DDD (degenerative disc disease), lumbar Lumbar radiculopathy VA NJX DX/THER SBST INTRLMNR LMBR/SAC W/IMG GDN Routine 05/19/2024 12:00 AM CDT DDD (degenerative disc disease), lumbar [...] 2 SITES AXIAL Routine 11/27/2023 1:29 PM PATIENT ACCESS REPRESENTATIVE Osteopenia, unspecified location Postmenopausal XR MAMMO BILAT SCREENING Routine 10/29/2023 1:57 PM PATIENT ACCESS REPRESENTATIVE Visit for screening mammogram LIPID PANEL W REFLEX MEASURED LDL Routine 10/28/2023 11:49 AM PATIENT ACCESS REPRESENTATIVE Pure hypercholesterolemia ANTI HCV Routine 05/29/2016 12:17 PM CDT Need for hepatitis C screening test from Last 3 Months or Most Recently Relevant to Health Maintenance Results * SCAN CORRESP-IMAGING (06/02/2024 8:58 AM CDT) Anatomical Region Laterality Modality Other Scanner OTHER * VA NJX DX/THER SBST INTRLMNR LMBR/SAC W/IMG GDN (05/19/2024 12:00 AM CDT) Nicola Cee MD PB - NERVOUS SYSTE M SERVICES * MR SPINE LUMBAR WO (04/30/2024 12:06 [...] For Patients: ??As a result of the Cures Act, medical [...] osseous lesions. Normal conus terminates at L1. U37-27-G97-P3: No spinal canal or neural foraminal narrowing. [...] result of the Century Cures Act, medical imagingexams and procedure reports [...] osseous lesions. Normal conus terminates at L1. [id number]-V0: No spinal canal or neural foraminal narrowing. [...] For Patients: ??As a result of the Cures Act, medical [...] For Patients: ??As a result of the Cures Act, medical [...] due to prior cholecystectomy. Procedure Note Herberth Carlos DO - 04/11/2024 For Patients: As a result of the Cures Act, medical imagingexams and procedure reports are released immediately into your electronicmedical record. You may view this report before your referring provider.If you have questions, please contact your health care provider. INDICATION: Low back pain. History of compression fractures FINDINGS: Two views of the lumbar spine are submitted. [facility] Stable minimal degenerative anterolisthesis of L4 on [...] DENSITY 2 SITES AXIAL (11/27/2023 1:29 PM PATIENT ACCESS REPRESENTATIVE) Anatomical Region Laterality Modality Spine, HIPS, HIPL, HIPR Other Impressions 11/27/2023 4:39 PM PATIENT ACCESS REPRESENTATIVE Osteoporosis. Consider a drug holiday from bisphosphonates [...] to assess therapeutic efficacy. Donna Deras PA-C [facility] 11/27/2023 ?? Narrative 11/27/2023 4:39 PM PATIENT ACCESS REPRESENTATIVE For Patients: Results are automatically released to your Transfer To ([employer]) account once available, in compliance with federal regulations. This means that you may see your results before your provider has had a chance to review them. Please allow 2-3 business days for your provider to comment on the results. XR DXA Bone Mineral Density (BMD) EXAM LOCATION: [facility] [address] [facility] [address] PATIENT NAME: Whitney Portillo DATE OF : [...] two scanners are made by the same wood type finisher. PROCEDURE: Dual-energy x-ray absorptiometry performed with routine [...] XR MAMMO BILAT SCREENING (10/29/2023 1:57 PM PATIENT ACCESS REPRESENTATIVE) Anatomical Region Laterality Modality BREASTS, Breast Left, Breast Right Bilateral Mammography Impressions 10/31/2023 9:04 AM PATIENT ACCESS REPRESENTATIVE ??There is no radiographic evidence for malignancy. ??Recommend annual mammograms. MAMMOGRAM ASSESSMENT: ??ACR 1 Negative PATIENTS: You will also receive a letter with your examination results in an easy to read format. ??If you have questions about your results, please contact your referring provider. Narrative 10/31/2023 9:04 AM PATIENT ACCESS REPRESENTATIVE For Patients: As a result of the Century Cures Act, medical imaging exams and procedure reports are released immediately into your electronic medical record. You may view this report before your referring provider. If you have questions, please contact your health care provider. XR MAMMO BILAT SCREENING [[id number]] CLINICAL HISTORY: ??This is an asymptomatic 73 y.o. patient. INDICATION FOR EXAM: Mammogram Screening. TECHNIQUE: CC & MLO views were obtained. ??This study was evaluated with the assistance of Computer-Aided Detection. COMPARISON FILM: Yes 10/09/22 [facility] FINDINGS: ??The breasts have scattered areas of fibroglandular density. There are no dominant masses, suspicious micro calcifications or areas of architectural distortion. Amy Iqbal MD MAMMO * (ABNORMAL) LIPID PANEL W REFLEX MEASURED LDL (10/28/2023 11:49 AM PATIENT ACCESS REPRESENTATIVE) CHOLESTEROL,TOTAL 200(H) 100 - 199 mg/dL 10/28/2023 9:27 PM [facility] Comment: Cholesterol, Total Reference Ranges Desirable <200 mg/dL Borderline 200-239 mg/dL High >=240 mg/dL TRIGLYCERIDES 110 <150 mg/dL 10/28/2023 9:27 PM [facility] HDL CHOLESTEROL 64 >40 mg/dL 9:27 PM PATIENT ACCESS REPRESENTATIVE [facility] NON-HDL CHOLESTEROL 136 <145 mg/dl 10/28/2023 9:27 PM PATIENT ACCESS REPRESENTATIVE [facility] CHOL/HDL RATIO 3.13 <4.50 10/28/2023 9:27 PM PATIENT ACCESS REPRESENTATIVE [facility] LDL CHOLESTEROL 114 <=130 mg/dL 10/28/2023 9:27 PM PATIENT ACCESS REPRESENTATIVE [facility] VLDL CHOLESTEROL 22 <=30 mg/dL 10/28/2023 9:27 PM PATIENT ACCESS REPRESENTATIVE [facility] PROVIDER ORDERED STATUS RANDOM 10/28/2023 9:27 PM PATIENT ACCESS REPRESENTATIVE [facility] Blood BLOOD SPECIMEN / Unknown Venipuncture / Unknown 10/28/2023 11:49 AM PATIENT ACCESS REPRESENTATIVE 10/28/2023 11:49 AM PATIENT ACCESS REPRESENTATIVE Taryn Abreu DO CHEMISTRY [facility] [address] [place] [address], * ANTI HCV (05/29/2016 12:17 PM CDT) HEPATITIS C ANTIBODY Non-Reacti ve Non-Reacti ve 05/29/2016 8:56 PM CDT [facility] Blood BLOOD SPECIMEN / Unknown Venipuncture / Unknown 05/29/2016 12:17 PM CDT 05/29/2016 3:54 PM CDT Narrative [facility] - 05/29/2016 8:56 PM CDT Antibodies to HCV not detected; does not exclude the possibility of exposure to HCV. Amy Iqbal MD SEND OUTS [facility] 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 Do not delete or resolve the infection flag. 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 Healthcare Directive 10/15/2019 10:28 AM 10/06/19 * Full Code (Latest Code Status on File) Date Activated Date Inactivated Comments 12/06/2021 11:12 AM 12/07/2021 2:45 PM Question Answer Comments Code Status Discussion: Reviewed Preferences * Full Code Date Activated Date Inactivated Comments 12/28/2009 8:32 AM 12/28/2009 11:39 PM Care Teams Test Kitchen Home Economist Relationship Specialty Start Date End Date Amy Iqbal MD [address] [place] [address] PCP - General 09/13/06 Landen Johnson MD [address] [place] [address] Surgery - General 11/20/11 Nicola Fisher DPM [address] [facility] [place] [address] Surgery - Podiatric 12/07/21
--- OUTSIDE RECORDS SUMMARY | 2024-06-08 03:59 | XMS_ITS | Clinical Summary ---
Author Organization [facility] Address [address] [place] [address] Care Team Providers Care Mill Operator Head Name Role Phone Unavailable Primary Care Provider [...] 10/05/2022 10/05/2021, 09/29/2020 COVID-19 Vaccine ( - 2022- season) 2023 09/25/2021, 02/24/2021, 02/03/2021 PHQ-2 (once per calendar year) 2023 INFLUENZA VACCINE (#1) 2024 , 09/29/2020, 09/06/2019, Additional history exists DTAP/TDAP/TD IMMUNIZATION [...]
--- OUTSIDE RECORDS SUMMARY | 2024-06-08 03:59 | XMS_ITS | Referral Summary ---
Author Organization [facility] Address [address] [place] [address] Care Team Providers Care Neon Sign Maker Name Role Phone Unavailable Primary Care [...]
== END 2024-06-07 14:51 | disposition home or self-care (01) ==
LOC: NFLDREF 06-08 03:57
PROVIDERS: PCP Family Medicine; Referring Provider Family Medicine; Visit Provider Nurse Practitioner
DX: N30.01 Acute cystitis with hematuria (principal)
CPT/HCPCS: 87086